=== PATIENT | female | born 1930 | race American Indian/Alaskan Native ===

== ENCOUNTER 2017-04-25 23:15 | Emergency (ER) | payer BC ==
[~2017-04-25] VITALS: Ht 157.5 cm; Wt 58.1 kg
--- NOTE | 2017-04-25 23:26 | Emergency Room Report ---
History of Present Illness General Chief Complaint: To Be Triaged Source: Patient Present Illness [facility] This is an 86-year-old female with history of parotid cancer status post resection many years ago. She is on any other medication. She presents with chief complaint of left shoulder left upper back pain. Onset for last few days but worse 30 minutes ago. Pain is sharp and spasm. Denies any fever or chills. Radiating down the left arm. No nausea vomiting. No shortness of breath. No diaphoresis. Pain is 8/10. Allergies: Coded Allergies: No Known Allergies (Unverified , 04/25/17) Patient History Past Medical History: see triage record, old chart reviewed Past Surgical History: other Pertinent Family History: other Social History: Denies: smoking Now: No Immunizations: other Reviewed Nursing Documentation: PMH: Agreed, PSxH: Agreed Review of Systems Eye: Denies: blurred vision, eye pain ENT: Denies: ear pain, nose congestion, throat swelling Respiratory: Denies: cough, shortness of breath Cardiovascular: Denies: chest pain, palpitations Gastrointestinal: Denies: abdominal pain, diarrhea, nausea, vomiting Musculoskeletal: Denies: back pain, joint pain Skin: Denies: rash Neurological: Denies: headache, numbness Endocrine: Denies: increased thirst, increased urine Hematologic/Lymphatic: Denies: easy bruising All Other Systems: negative except mentioned in HPI Physical Exam vitals unremarkable Sp02 EP Interpretation: reviewed, normal General Appearance: well appearing, no apparent distress, alert, thin Head: normocephalic, atraumatic Eyes: bilateral eye EOMI, bilateral eye PERRL ENT: hearing grossly normal, normal pharynx Neck: full range of motion, supple, no meningismus Respiratory: chest non-tender, lungs clear, normal breath sounds Cardiovascular #1: regular rate, rhythm, no murmur Gastrointestinal: normal bowel sounds, non tender, no mass, no organomegaly, no bruit, non-distended Musculoskeletal: back normal, gait/station normal, normal range of motion Neurologic: alert, oriented x3, other - Left facial droop from the lip down. This is chronic after her surgery. Psychiatric: mood/affect normal Skin: warm/dry Medical Decision Making Diagnostic Impression: Primary Impression: Chest pain Qualified Codes: R07.9 - Chest pain, unspecified Additional Impression: Cervical radiculopathy ER Course patient presents with atypical chest pain. 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 She's been having this problem chronically. His this happen to be worse tonight. No evidence of ACS, PE, dissection to name a few. Lab Results Impression labs unremarkable EKG Diagnostic Results Rate: normal Rhythm: NSR ST Segments: no acute changes Rhythm Strip Diag. Results EP Interpretation: yes Rate: 60 Rhythm: NSR, no PVC's, no ectopy Chest X-Ray Diagnostic Results EP Interpretation: Yes Findings: no consolidation, no effusion, no pneumothorax, no acute cardiopulmonary disease Number of Views: 1 Other X-Ray Diagnostic Results Other X-Ray Diagnostic Results : X-Ray Ordered: C-spine x-rays Date: April 26, 2017 Time: 00:41 EP Interpretation: Yes Findings: no fractures, no dislocation, no soft tissue swelling, other - Severe degenerative changes Number of Views: 4 Status: improved Disposition: HOME, SELF-CARE Condition: Stable Scripts Hydrocodone/Acetaminophen 5-325* (HYDROCODONE/ACETAMINOPHEN 5-325*) 1 Each Tablet 1 TAB ORAL Q6H Y for For Pain, #30 TAB 0 Refills Prov: SIOBHAN SOTO M.D. 04/26/17 Meloxicam* (MOBIC*) 7.5 Mg Tablet 7.5 MG ORAL BID, #60 TAB 0 Refills Prov: SIOBHAN SOTO M.D. 04/26/17 Additional Instructions: Followup with your Dr. in 2-3 days. Return if symptom worsen. SIOBHAN SOTO M.D. April 25, 2017 23:26
[2017-04-25] MEDS ORDERED: ASPIR 8181 MG ORAL (23:29)
[2017-04-25] MEDS ORDERED: Morphine Sulfate 2mg/ml Inj IVP ONE (23:30)
[2017-04-25] MEDS ORDERED: Aspirin Baby 81mg ORAL ONE (23:30)
[2017-04-25 23:47] LABS: BASOPHILS % (AUTO) 0.8 % (0.0-2.0); EOSINOPHILS % (AUTO) 1.6 % (0.0-3.0); LYMPHOCYTES % (AUTO) 32.1 % (20.0-45.0); MEAN CORPUSCULAR HEMOGLOBIN 33.4 PG (27.0-31.0); MEAN CORPUSCULAR HGB CONC 34.8 G/DL (32.0-36.0); MEAN CORPUSCULAR VOLUME 96 FL (80-99); MEAN PLATELET VOLUME 7.5 FL (6.5-10.1); MONOCYTES % (AUTO) 7.6 % (1.0-10.0); PLATELET COUNT 201 K/UL (150-450); RED BLOOD COUNT 3.63 M/UL (4.20-5.40); RED CELL DISTRIBUTION WIDTH 13.3 % (11.6-14.8); WHITE BLOOD COUNT 8.7 K/UL (4.8-10.8)
[2017-04-26 00:03] LABS: TROPONIN I < 0.30 ng/mL (<=0.30)
[2017-04-26 00:06] LABS: ALANINE AMINOTRANSFERASE 13 U/L (3-33); ALBUMIN/GLOBULIN RATIO 1.7 (1.0-2.7); ANION GAP -7 (5-15); ASPARTATE AMINO TRANSFERASE 18 U/L (5-40); CALCIUM 9.4 mg/dL (8.6-10.2); CARBON DIOXIDE 27 mEQ/L (20-30); CHLORIDE 111 mEQ/L (98-107); HEMOLYSIS 3; POTASSIUM 4.2 mEQ/L (3.4-4.9); SODIUM 131 mEQ/L (135-145); TOTAL PROTEIN 6.7 g/dL (6.6-8.7)
[2017-04-26 00:16] LABS: CKMB 5.4 ng/mL (< 3.8)
[2017-04-26] MEDS ORDERED: MOBIC7.5 MG ORAL (00:43)
[2017-04-26] MEDS ORDERED: HYDROCODON-ACE1 EA15 ORAL (00:43)
[2017-04-26 00:52] VITALS: BP 132/50
--- NOTE | 2017-04-26 10:26 | Diagnostic Imaging Report ---
Indication: Chest pain Technique: One view of the chest Comparison: none Findings: There is mild thoracolumbar scoliotic deformity and fairly extensive degenerative spondylosis. The lungs and pleural spaces are clear. There are dense mitral annular calcifications. The heart size is normal. Impression: No acute process
--- NOTE | 2017-04-26 12:54 | Diagnostic Imaging Report ---
Indication: PAIN Technique: 3 views of the cervical spine Comparison: none Findings: Visualization is very limited, due to suboptimal positioning and, per technologist, inability of patient to hold still. No gross acute fractures. No dislocations. No prevertebral soft tissue swelling. There is extensive multilevel disc degeneration. There is bilateral facet degeneration. Impression: Very limited exam. No definite acute bony trauma Degenerative changes
== END 2017-04-26 00:55 | disposition home or self-care (01) ==
LOC: EMR 23:34
DX: R07.89 Other chest pain (principal); M54.12 Radiculopathy, cervical region; R29.810 Facial weakness
CPT/HCPCS: 36415; 71010; 72052; 80053; 82550; 82553; 84484; 85025; 85379; 93005; 96374; 96375; 99284; J2270; J2405